=== PATIENT | male | born 1975 | race Asian ===

== ENCOUNTER → 2022-08-01 15:50 | Outpatient (CLI) | payer OTHER, SELFPAY ==
--- NOTE | 2022-08-01 15:54 | DI.RAD.S_ITS ---
PROCEDURE: XR KNEE RT 3V INDICATIONS: knee pain TECHNIQUE: 3 views of the knee were acquired. COMPARISON: [facility], CR, XR KNEE LT 3V, 08/01/2022, 15:51. FINDINGS: Bones: No fractures or dislocations. No suspicious bony lesions. Soft tissues: No joint effusion. No suspicious soft tissue calcifications. IMPRESSION: Minimal right knee DJD. Dictated by: Sg Oliver M.D. on 08/01/2022 at 16:49 Approved by: Sg Oliver M.D. on 08/01/2022 at 16:50
--- NOTE | 2022-08-01 15:54 | DI.RAD.S_ITS ---
PROCEDURE: XR KNEE LT 3V INDICATIONS: knee pain TECHNIQUE: 3 views of the knee were acquired. COMPARISON: None. FINDINGS: Bones: No fractures or dislocations. Small patellar osteophytes. No suspicious bony lesions. Soft tissues: No significant joint effusion. No suspicious soft tissue calcifications. IMPRESSION: Mild left knee DJD. Dictated by: Sg Oliver M.D. on 08/01/2022 at 16:48 Approved by: Sg Oliver M.D. on 08/01/2022 at 16:49
== END ==
PROVIDERS: PCP Internal Medicine; Referring Provider Internal Medicine; Visit Provider Internal Medicine
DX: M17.12 Unilateral primary osteoarthritis, left knee (principal); M25.561 Pain in right knee; M25.562 Pain in left knee
CPT/HCPCS: 73562

== ENCOUNTER → 2025-01-20 09:30 | Outpatient (CLI) | payer OTHER, SELFPAY ==
--- NOTE | 2025-01-20 09:31 | DI.RAD.S_ITS ---
PROCEDURE: XR HAND RT MIN 3V INDICATIONS: right hand/finger pain TECHNIQUE: 3 views of the right hand acquired. COMPARISON: None. FINDINGS: Mild degenerative changes at the right 1st carpal-metacarpal and at the PIP and DIP joints of the fingers. No radiographic evidence of fracture dislocation or high attenuation foreign body. IMPRESSION: Mild degenerative changes. Dictated by: David Simon M.D. on 01/20/2025 at 14:57 Approved by: David Simon M.D. on 01/20/2025 at 14:59
== END ==
LOC: RAD 09:31
PROVIDERS: PCP Internal Medicine; Referring Provider Internal Medicine; Visit Provider Internal Medicine
DX: M79.641 Pain in right hand (principal); M79.642 Pain in left hand
CPT/HCPCS: 73130

== ENCOUNTER → 2025-02-10 09:56 | Outpatient (CLI) | payer OTHER, SELFPAY ==
[2025-02-10 12:05] LABS: Alanine Aminotransferase 21 IU/L (<50); Albumin 4.9 g/dL (3.5-5.0); Albumin Globulin Ratio 1.5 (1.0-2.8); Alkaline Phosphatase 59 U/L (38-126); Blood Urea Nitrogen 17 mg/dL (9-20); Calcium 9.3 mg/dL (8.4-10.2); Carbon Dioxide 24 mmol/L (22-32); Chloride 100 mmol/L (98-107); Cholesterol 220 mg/dL (140-199); Estimated Glomerular Filt Rate > 60 mL/min (>60); Globulin 3.3 g/dL (1.7-4.1); Glucose 75 mg/dL (70-99); HDL Cholesterol 56 mg/dL (40-60); HEMOLYSIS < 15 (0-50); Potassium 4.4 mmol/L (3.4-5.1); Sodium 137 mmol/L (137-145); Total Protein 8.2 g/dL (6.3-8.2); Triglycerides 83 mg/dL (35-150)
== END ==
PROVIDERS: PCP Internal Medicine; Referring Provider Internal Medicine; Visit Provider Internal Medicine
DX: Z13.220 Encounter for screening for lipoid disorders (principal); I10 Essential (primary) hypertension; Z13.1 Encounter for screening for diabetes mellitus; Z13.6 Encounter for screening for cardiovascular disorders
CPT/HCPCS: 36415; 80053; 80061